=== PATIENT | male | born 1945 | race Caucasian/White ===

== ENCOUNTER 2016-04-06 08:35 | Outpatient (RCR) | payer MEDICARE, BC | END 2016-07-05 | disposition home or self-care (01) | LOC: CARDREHAB 08:35 | DX: Z48.812 Encounter for surgical aftercare following surgery on the circulatory system (principal); I21.4 Non-ST elevation (NSTEMI) myocardial infarction; Z95.5 Presence of coronary angioplasty implant and graft ==

== ENCOUNTER 2016-04-10 09:37 | Outpatient (RCR) | payer MEDICARE, BC | END 2016-05-29 08:00 | disposition still patient (30) | LOC: OT 09:37 | DX: G56.03 Carpal tunnel syndrome, bilateral upper limbs (principal) ==

== ENCOUNTER → 2021-05-26 | Outpatient (CLI) | payer MEDICARE, BC | LOC: VAS 12:41 | DX: R22.42 Localized swelling, mass and lump, left lower limb (principal) ==